=== PATIENT | female | born 1960 | race Caucasian/White ===

== ENCOUNTER 2017-07-20 08:47 | Emergency (ER) | payer MEDICARE, MEDICAID ==
[~2017-07-20] VITALS: Ht 165.1 cm; Wt 100.0 kg
[~2017-07-20 08:47] MED LIST: ADVIL MIGRAI200 M1 PO; ALLERGY RELF10 M1 PO; AMLODIPINE BESY10 MG PO; AMOXICILLIN/CL875 MG PO; AMOXICILLIN500 MG PO; AMOXIL500 M1 OR; ANTIVERT25 MG OR; ANUCORT-HC25 MG RE; ASPIRIN325 MG PO; AUGMENTIN875TAB PO; CIPROFLOXACN500 MG PO; CITALOPRAM40 MG OR; CLARITHROMYC500 M1 PO; CLARITIN RDT5 MG PO; CLARITIN10 M1 PO; DEPO-MEDROL80 MG/ML IM; ENALAPRIL10 MG PO; EQL IBUPROFEN200 MG PO; ESTRADIOL1 MG PO; FAMOTIDINE20 M1 PO; FLEXERIL PO; FLEXERIL5 M1 PO; FLEXERIL5 MG PO; FLONASE NASAL50 MCG; FLUZONE SPLT1 M1 IM; GENTAMICIN IV; GEODON60 MG OR; GEODON80 MG OR; GEODON80 MG PO; GLUCOPHAGE500 MG PO; GLYBURIDE MICRON6 MG PO; GLYNASE6 MG OR; GLYNASE6 MG PO; KEFLEX500 MG PO; LORTAB 5 OR; LORTAB 7.5 PO; LOVASTATIN20 MG OR; MEDDOSEPAK PO; MELOXICAM15 MG PO; MELOXICAM7.5 MG PO; METFORMIN500 M1 PO; METFORMIN500 MG PO; METRONIDAZOL500 MG PO; MONTELUKAST SOD10 MG PO; MUCINEX600 MG PO; NAPROSYN500 MG PO; NAPROXEN500 MG PO; NO HOME MEDS; NORVASC10 M1 PO; NORVASC5 MG OR; OMEPRAZOLE20 M2 PO; OMEPRAZOLE20 MG PO; PAROXETINE10 MG PO; PEPCID20 MG PO; PERCOCET 5/325M1 TAB OR; PHENERGAN12.5 MG/TA PO; PRAVACHOL20 MG PO; PRAVASTATIN SOD20 MG PO; PRAVASTATIN10 MG PO; PREDNISONE20 MG PO; PREP H HC1 % EX; PYRIDIUM200 MG PO; REBETOL200 MG OR; ROCEPHIN1 G1 IM; SINGULAIR10 MG PO; SODIUM CHLORIDE IV; STOOL SOFTEN240 MG PO; TENIVAC1 ML IM; TRAMADOL HCL50 MG PO; TRAZODONE100 MG PO; TRAZODONE150 MG PO; ULTRAM50 M1 PO; VASOTEC10 MG PO; VENLAFAXINE37.5 M2 PO; ZANTAC150 M1 PO; ZIPRASIDONE HCL40 MG PO; ZOFRAN4 MG/TAB PO; [UNRECOGNIZED DRUG - REMARK]; [UNRECOGNIZED DRUG - REMARK]
[2017-07-20] MEDS ORDERED: MOTRIN400 MG PO (09:14)
[2017-07-20] MEDS ORDERED: FLEXERIL5 M1 PO (09:14)
[2017-07-20] MEDS ORDERED: AMLODIPINE5 MG PO (09:17)
[2017-07-20] MEDS ORDERED: GABAPENTIN100 MG PO (09:19)
[2017-07-20] MEDS ORDERED: FLONASE AL50 MCG/ACT NAB (09:20)
[2017-07-20] MEDS ORDERED: LANTUS100 UNIT/M SC (09:21)
[2017-07-20 09:22] VITALS: BP 136/74
== END 2017-07-20 09:35 | disposition home or self-care (01) ==
LOC: ED 08:47
DX: M25.511 Pain in right shoulder (principal)

== ENCOUNTER 2017-09-29 17:32 | Emergency (ER) | payer MEDICARE, MEDICAID ==
[~2017-09-29] VITALS: Ht 165.1 cm; Wt 100.4 kg
[~2017-09-29 17:32] MED LIST changes: +AMLODIPINE5 MG PO; +FLONASE AL50 MCG/ACT NAB; +GABAPENTIN100 MG PO; +LANTUS100 UNIT/M SC; +MOTRIN400 MG PO
[2017-09-29 19:09] LABS: HEMATOCRIT 40.4 % (37.0-47.0); HEMOGLOBIN 13.3 g/dl (12.0-16.0); IMMATURE GRANULOCYTES 0.4 % (0.0-1.0); MEAN CORPUSCULAR HGB 29.6 pG CALC (26.0-32.0); MEAN CORPUSCULAR HGB CONC 32.9 g/L CALC (32.0-36.0); NEUT# 6.94 thou/uL (2.00-7.15); RED BLOOD COUNT 4.49 mill/uL (4.20-5.60); RED CELL DISTRI WIDTH 13.5 % (11.5-15.5)
[2017-09-29 19:21] LABS: ALBUMIN 4.2 g/dL (3.2-5.0); BILIRUBIN, TOTAL 0.7 mg/dL (0.0-1.4); CREATININE 1.2 mg/dL (0.5-1.0); TOTAL PROTEIN 7.6 g/dL (6.3-8.2)
[2017-09-29] MEDS ORDERED: FLEXERIL PO (19:44)
[2017-09-29] MEDS ORDERED: NAPROSYN500 MG PO (19:44)
[2017-09-29 19:46] VITALS: BP 114/70
== END 2017-09-29 19:45 | disposition home or self-care (01) ==
LOC: ED 17:32
PROVIDERS: Emergency Medicine
DX: M79.1 Myalgia (principal); I10 Essential (primary) hypertension

== ENCOUNTER 2017-10-15 13:29 | Emergency (ER) | payer MEDICARE, MEDICAID ==
[~2017-10-15] VITALS: Ht 165.1 cm; Wt 101.4 kg
[2017-10-15 13:34] VITALS: BP 125/72
[2017-10-15] MEDS ORDERED: LORTAB 5/3255 MG PO (13:52)
[2017-10-15] MEDS ORDERED: PENICILLN VK500 MG PO (13:52)
== END 2017-10-15 14:03 | disposition home or self-care (01) ==
LOC: ED 13:29
DX: K08.89 Other specified disorders of teeth and supporting structures (principal); F17.210 Nicotine dependence, cigarettes, uncomplicated

== ENCOUNTER 2018-07-04 21:58 | Emergency (ER) | payer MEDICARE, MEDICAID ==
[~2018-07-04] VITALS: Ht 165.1 cm; Wt 99.6 kg
[~2018-07-04 21:58] MED LIST changes: +LORTAB 5/3255 MG PO; +PENICILLN VK500 MG PO
[2018-07-04] MEDS ORDERED: MELOXICAM15 MG PO (22:27)
[2018-07-04] MEDS ORDERED: RANITIDINE150 M1 PO (22:27)
[2018-07-04 22:32] LABS: HEMATOCRIT 34.9 % (37.0-47.0); HEMOGLOBIN 11.6 g/dl (12.0-16.0); IMMATURE GRANULOCYTES 0.2 % (0.0-5.0); MEAN CELL VOLUME 88.1 fL CALC (80.0-100.0); MEAN CORPUSCULAR HGB 29.3 pG CALC (26.0-32.0); MEAN CORPUSCULAR HGB CONC 33.2 g/L CALC (32.0-36.0); NEUT# 3.14 thou/uL (2.00-7.15); RED BLOOD COUNT 3.96 mill/uL (4.20-5.60); RED CELL DISTRI WIDTH 13.7 % (11.5-15.5)
[2018-07-04 22:48] LABS: ALBUMIN 3.8 g/dL (3.2-5.0); ALKALINE PHOSPHATASE 96 u/l (38-126); AMYLASE 34 u/l (30-110); ANION GAP 15 (6-22 (CALC)); BILIRUBIN, TOTAL 0.6 mg/dL (0.0-1.4); BUN 21 mg/dL (7-17); BUN/CREATININE RATIO 22 (12-20 (CALC)); CARBON DIOXIDE 25 mmol/l (22-30); CHLORIDE 101 mmol/l (95-108); GFR 57 ML/MIN (>=60 (CALC)); GFR FOR AFR.AMER. > 60 ML/MIN (>=60 (CALC)); LIPASE 223 u/l (23-300); MAGNESIUM 1.9 mg/dL (1.6-2.3); POTASSIUM 4.2 mmol/l (3.5-5.1); SGOT/AST 41 u/l (14-36); SGPT/ALT 44 u/l (9-52); SODIUM 136 mmol/l (137-146); TOTAL PROTEIN 6.7 g/dL (6.3-8.2)
[2018-07-05 00:11] LABS: URINE BILIRUBIN - DIPSTICK NEGATIVE (NEGATIVE); URINE BLOOD DIPSTICK MODERATE (NEGATIVE); URINE COLOR YELLOW; URINE GLUCOSE - DIPSTICK >=1000 mg/dL (NEGATIVE); URINE KETONE NEGATIVE (NEGATIVE); URINE LEUK ESTERASE NEGATIVE (NEGATIVE); URINE NITRITE - DIPSTICK NEGATIVE (Negative); URINE PROTEIN - DIPSTICK 30 mg/dL (NEG-TRACE); URINE UROBILINOGEN - DIPSTICK 0.2 E.U./dL (0.2)
[2018-07-05 00:13] LABS: URINE CLARITY SL CLOUDY
[2018-07-05 00:20] LABS: URINE BACTERIA FEW hpf; URINE MUCUS MODERATE hpf (NONE-FEW); URINE SQUAMOUS EPITHELIAL CELL MODERATE EPI/hpf (0-FEW)
[2018-07-05] MEDS ORDERED: NOVOLIN R100 UNIT/M SC (00:21)
[2018-07-05 00:28] VITALS: BP 140/75
== END 2018-07-05 00:28 | disposition home or self-care (01) ==
LOC: ED 21:58
PROVIDERS: Family Medicine
DX: E11.65 Type 2 diabetes mellitus with hyperglycemia (principal); I10 Essential (primary) hypertension; F17.210 Nicotine dependence, cigarettes, uncomplicated; Z91.11 Patient's noncompliance with dietary regimen; Z79.4 Long term (current) use of insulin

== ENCOUNTER 2019-02-16 11:52 | Emergency (ER) | payer MEDICARE, MEDICAID ==
[~2019-02-16] VITALS: Ht 165.1 cm; Wt 100.0 kg
[~2019-02-16 11:52] MED LIST changes: +NOVOLIN R100 UNIT/M SC; +RANITIDINE150 M1 PO
[2019-02-16 12:40] LABS: HEMOGLOBIN 11.5 g/dl (12.0-16.0); IMMATURE GRANULOCYTES 0.5 % (0.0-5.0); MEAN CELL VOLUME 88.9 fL CALC (80.0-100.0); MEAN CORPUSCULAR HGB 28.4 pG CALC (26.0-32.0); MEAN CORPUSCULAR HGB CONC 31.9 g/L CALC (32.0-36.0); NEUT# 4.02 thou/uL (2.00-7.15); RED BLOOD COUNT 4.05 mill/uL (4.20-5.60); RED CELL DISTRI WIDTH 13.8 % (11.5-15.5)
[2019-02-16 12:42] LABS: URINE BILIRUBIN - DIPSTICK NEGATIVE (NEGATIVE); URINE BLOOD DIPSTICK TRACE-INTACT (NEGATIVE); URINE COLOR YELLOW; URINE GLUCOSE - DIPSTICK NEGATIVE (NEGATIVE); URINE KETONE NEGATIVE (NEGATIVE); URINE LEUK ESTERASE NEGATIVE (NEGATIVE); URINE NITRITE - DIPSTICK NEGATIVE (Negative); URINE PH 5.5 (4.5-8.0); URINE PROTEIN - DIPSTICK >=300 mg/dL (NEG-TRACE); URINE SPECIFIC GRAVITY >=1.030; URINE UROBILINOGEN - DIPSTICK 0.2 E.U./dL (0.2)
[2019-02-16 12:48] LABS: BARBITURATES NEGATIVE (NEGATIVE); COCAINE NEGATIVE (NEGATIVE); METHADONE NEGATIVE (NEGATIVE); TETRAHYDROCANNABIONOL NEGATIVE (NEGATIVE); TRICYLIC ANTIDEPRESSANTS NEGATIVE (NEGATIVE); URINE EPITHELIAL CELLS FEW EPI/hpf (0-FEW); URINE MUCUS MODERATE hpf (NONE-FEW); URINE RBC 0-2 RBC/hpf (0-5)
[2019-02-16 12:49] LABS: OXCYCODONE NEGATIVE (NEGATIVE)
[2019-02-16 12:53] LABS: ALBUMIN 4.1 g/dL (3.2-5.0); ALKALINE PHOSPHATASE 86 u/l (38-126); ANION GAP 13 (6-22 (CALC)); BILIRUBIN, TOTAL 0.5 mg/dL (0.0-1.4); BUN 19 mg/dL (7-17); BUN/CREATININE RATIO 24 (12-20 (CALC)); CARBON DIOXIDE 24 mmol/l (22-30); CHLORIDE 108 mmol/l (95-108); CREATININE 0.8 mg/dL (0.5-1.0); GFR > 60 ML/MIN (>=60 (CALC)); GFR FOR AFR.AMER. > 60 ML/MIN (>=60 (CALC)); LIPASE 101 u/l (23-300); POTASSIUM 4.5 mmol/l (3.5-5.1); SGOT/AST 37 u/l (14-36); SODIUM 141 mmol/l (137-146); TOTAL PROTEIN 7.2 g/dL (6.3-8.2)
[2019-02-16 13:11] VITALS: BP 140/78
== END 2019-02-16 13:41 | disposition home or self-care (01) ==
LOC: ED 11:52
DX: R19.7 Diarrhea, unspecified (principal); F15.90 Other stimulant use, unspecified, uncomplicated; E11.9 Type 2 diabetes mellitus without complications; I10 Essential (primary) hypertension; F17.210 Nicotine dependence, cigarettes, uncomplicated

== ENCOUNTER 2020-01-01 | Emergency (ER) | payer MEDICARE, MEDICAID ==
[~2020-01-01] MED LIST changes: -AMLODIPINE5 MG PO; +NORVASC5 M1 PO
[2020-01-01 22:33] LABS: HEMATOCRIT 36.3 % (37.0-47.0); HEMOGLOBIN 11.1 g/dl (12.0-16.0); MEAN CELL VOLUME 90.1 fL CALC (80.0-100.0); MEAN CORPUSCULAR HGB 27.5 pG CALC (26.0-32.0); MEAN CORPUSCULAR HGB CONC 30.6 g/L CALC (32.0-36.0); NEUT# 3.67 thou/uL (2.00-7.15); RED BLOOD COUNT 4.03 mill/uL (4.20-5.60); RED CELL DISTRI WIDTH 14.3 % (11.5-15.5)
[2020-01-01 22:45] LABS: ALBUMIN 3.5 g/dL (3.2-5.0); ALKALINE PHOSPHATASE 89 u/l (38-126); ANION GAP 7 (6-22 (CALC)); BILIRUBIN, TOTAL 0.4 mg/dL (0.0-1.4); BUN 19 mg/dL (7-17); BUN/CREATININE RATIO 21 (12-20 (CALC)); CARBON DIOXIDE 27 mmol/l (22-30); CHLORIDE 109 mmol/l (95-108); CREATININE 0.9 mg/dL (0.5-1.0); GFR > 60 ML/MIN (>=60 (CALC)); GFR FOR AFR.AMER. > 60 ML/MIN (>=60 (CALC)); POTASSIUM 3.9 mmol/l (3.5-5.1); SGOT/AST 42 u/l (14-36); SODIUM 140 mmol/l (137-146); TOTAL PROTEIN 6.9 g/dL (6.3-8.2)
[2020-01-01 22:58] LABS: MYOGLOBIN 52 ng/mL (0 - 62)
[2020-01-01] MEDS ORDERED: AUGMENTIN500TAB PO (23:49)
[2020-01-02 00:05] LABS: BARBITURATES NEGATIVE (NEGATIVE); COCAINE NEGATIVE (NEGATIVE); METHADONE NEGATIVE (NEGATIVE); OXCYCODONE NEGATIVE (NEGATIVE); TETRAHYDROCANNABIONOL NEGATIVE (NEGATIVE); TRICYLIC ANTIDEPRESSANTS NEGATIVE (NEGATIVE)
== END 2020-01-01 23:58 ==
PROVIDERS: Emergency Medicine
DX: S50.371A Other superficial bite of right elbow, initial encounter (principal); S00.93XA Contusion of unspecified part of head, initial encounter; I10 Essential (primary) hypertension; E11.9 Type 2 diabetes mellitus without complications; F17.200 Nicotine dependence, unspecified, uncomplicated; W54.0XXA Bitten by dog, initial encounter; Y00.XXXA Assault by blunt object, initial encounter; Y92.009 Unspecified place in unspecified non-institutional (private) residence as the place of occurrence of the external cause; Z79.4 Long term (current) use of insulin

== ENCOUNTER 2020-04-07 12:38 | Emergency (ER) | payer MEDICARE, MEDICAID ==
[~2020-04-07] VITALS: Ht 165.1 cm; Wt 95.0 kg
[~2020-04-07 12:38] MED LIST changes: +AUGMENTIN500TAB PO
[2020-04-07 15:23] LABS: HEMATOCRIT 30.9 % (37.0-47.0); HEMOGLOBIN 9.8 g/dl (12.0-16.0); IMMATURE GRANULOCYTES 0.2 % (0.0-5.0); MEAN CELL VOLUME 87.3 fL CALC (80.0-100.0); MEAN CORPUSCULAR HGB 27.7 pG CALC (26.0-32.0); MEAN CORPUSCULAR HGB CONC 31.7 g/dL CAL (32.0-36.0); NEUT# 3.26 thou/uL (2.00-7.15); RED BLOOD COUNT 3.54 mill/uL (4.20-5.60); RED CELL DISTRI WIDTH 15.7 % (11.5-15.5)
[2020-04-07 15:46] LABS: ALBUMIN 3.5 g/dL (3.2-5.0); ALKALINE PHOSPHATASE 104 u/l (38-126); ANION GAP 10 (6-22 (CALC)); BILIRUBIN, TOTAL 0.4 mg/dL (0.0-1.4); BUN 25 mg/dL (7-17); BUN/CREATININE RATIO 21 (12-20 (CALC)); CARBON DIOXIDE 23 mmol/l (22-30); CHLORIDE 106 mmol/l (95-108); CREATININE 1.2 mg/dL (0.5-1.0); GFR 46 ML/MIN (>=60 (CALC)); GFR FOR AFR.AMER. 55 ML/MIN (>=60 (CALC)); POTASSIUM 3.9 mmol/l (3.5-5.1); SGOT/AST 45 u/l (14-36); SODIUM 135 mmol/l (137-146); TOTAL PROTEIN 6.8 g/dL (6.3-8.2)
[2020-04-07 15:58] LABS: MYOGLOBIN 94 ng/mL (0 - 62)
[2020-04-07] MEDS ORDERED: AMOXICILLIN875 MG PO (16:15)
[2020-04-07 16:55] VITALS: BP 139/74
[2020-04-07 16:57] LABS: URINE BILIRUBIN - DIPSTICK NEGATIVE (NEGATIVE); URINE BLOOD DIPSTICK TRACE-INTACT (NEGATIVE); URINE COLOR YELLOW; URINE GLUCOSE - DIPSTICK NEGATIVE (NEGATIVE); URINE KETONE NEGATIVE (NEGATIVE); URINE LEUK ESTERASE NEGATIVE (NEGATIVE); URINE NITRITE - DIPSTICK NEGATIVE (Negative); URINE PROTEIN - DIPSTICK >=300 mg/dL (NEG-TRACE); URINE SPECIFIC GRAVITY 1.025; URINE UROBILINOGEN - DIPSTICK 0.2 E.U./dL (0.2)
[2020-04-07 17:21] LABS: URINE SQUAMOUS EPITHELIAL CELL FEW EPI/hpf (0-FEW)
== END 2020-04-07 16:55 | disposition home or self-care (01) ==
LOC: ED 12:38
PROVIDERS: Emergency Medicine
DX: L03.116 Cellulitis of left lower limb (principal); L03.115 Cellulitis of right lower limb; S90.862A Insect bite (nonvenomous), left foot, initial encounter; S90.811A Abrasion, right foot, initial encounter; E11.9 Type 2 diabetes mellitus without complications; I10 Essential (primary) hypertension; F17.200 Nicotine dependence, unspecified, uncomplicated; W57.XXXA Bitten or stung by nonvenomous insect and other nonvenomous arthropods, initial encounter; X58.XXXA Exposure to other specified factors, initial encounter; Z79.4 Long term (current) use of insulin

== ENCOUNTER 2020-04-20 20:02 | Emergency (ER) | payer MEDICARE, MEDICAID ==
[~2020-04-20] VITALS: Ht 165.1 cm; Wt 90.9 kg
[~2020-04-20 20:02] MED LIST changes: +AMOXICILLIN875 MG PO
[2020-04-20 21:08] LABS: HEMATOCRIT 28.9 % (37.0-47.0); HEMOGLOBIN 8.8 g/dl (12.0-16.0); IMMATURE GRANULOCYTES 0.2 % (0.0-5.0); MEAN CORPUSCULAR HGB 27.4 pG CALC (26.0-32.0); MEAN CORPUSCULAR HGB CONC 30.4 g/dL CAL (32.0-36.0); NEUT# 3.14 thou/uL (2.00-7.15); RED BLOOD COUNT 3.21 mill/uL (4.20-5.60); RED CELL DISTRI WIDTH 16.1 % (11.5-15.5)
[2020-04-20 21:08] LABS: URINE BILIRUBIN - DIPSTICK NEGATIVE (NEGATIVE); URINE BLOOD DIPSTICK NEGATIVE (NEGATIVE); URINE COLOR YELLOW; URINE GLUCOSE - DIPSTICK NEGATIVE (NEGATIVE); URINE KETONE NEGATIVE (NEGATIVE); URINE LEUK ESTERASE NEGATIVE (NEGATIVE); URINE NITRITE - DIPSTICK NEGATIVE (Negative); URINE PH 5.5 (4.5-8.0); URINE PROTEIN - DIPSTICK 100 mg/dL (NEG-TRACE); URINE SPECIFIC GRAVITY >=1.030; URINE UROBILINOGEN - DIPSTICK 0.2 E.U./dL (0.2)
[2020-04-20 21:13] LABS: URINE RBC 0-2 RBC/hpf (0-5); URINE SQUAMOUS EPITHELIAL CELL FEW EPI/hpf (0-FEW); URINE WBC 0-2 WBC/hpf (0-5)
[2020-04-20 21:25] LABS: ALBUMIN 3.7 g/dL (3.2-5.0); BILIRUBIN, TOTAL 0.3 mg/dL (0.0-1.4); CREATININE 1.2 mg/dL (0.5-1.0); POTASSIUM 3.9 mmol/l (3.5-5.1); TOTAL PROTEIN 6.8 g/dL (6.3-8.2)
[2020-04-20 21:29] LABS: MAGNESIUM 2.4 mg/dL (1.6-2.3)
[2020-04-20] MEDS ORDERED: TORADOL PO (21:43)
[2020-04-20 22:08] VITALS: BP 161/67
== END 2020-04-20 22:45 | disposition home or self-care (01) ==
LOC: ED 20:02
PROVIDERS: Family Medicine
DX: R25.2 Cramp and spasm (principal); M25.512 Pain in left shoulder; F15.10 Other stimulant abuse, uncomplicated; E11.9 Type 2 diabetes mellitus without complications; I10 Essential (primary) hypertension; F17.200 Nicotine dependence, unspecified, uncomplicated; Z79.4 Long term (current) use of insulin

== ENCOUNTER 2021-04-10 20:06 | Emergency (ER) | payer MEDICARE, MEDICAID ==
[~2021-04-10] VITALS: Ht 165.1 cm; Wt 81.0 kg
[~2021-04-10 20:06] MED LIST changes: +TORADOL PO
[2021-04-10 20:53] LABS: HEMATOCRIT 33.9 % (37.0-47.0); HEMOGLOBIN 10.4 g/dl (12.0-16.0); IMMATURE GRANULOCYTES 0.1 % (0.0-5.0); MEAN CELL VOLUME 85.4 fL CALC (80.0-100.0); MEAN CORPUSCULAR HGB 26.2 pG CALC (26.0-32.0); MEAN CORPUSCULAR HGB CONC 30.7 g/dL CAL (32.0-36.0); RED BLOOD COUNT 3.97 mill/uL (4.20-5.60); RED CELL DISTRI WIDTH 15.3 % (11.5-15.5)
[2021-04-10 21:06] LABS: ALKALINE PHOSPHATASE 123 u/l (38-126); ANION GAP 13 (6-22 (CALC)); BUN 17 mg/dL (8-23); BUN/CREATININE RATIO 14 (12-20 (CALC)); CARBON DIOXIDE 22 mmol/l (22-30); CHLORIDE 107 mmol/l (95-108); CREATININE 1.3 mg/dL (0.5-1.0); GFR 42 ML/MIN (>=60 (CALC)); GFR FOR AFR.AMER. 50 ML/MIN (>=60 (CALC)); POTASSIUM 4.2 mmol/l (3.5-5.1); SGOT/AST 37 u/l (9-36); SODIUM 137 mmol/l (137-146)
[2021-04-10 21:08] LABS: ALBUMIN 3.4 g/dL (3.2-5.0); BILIRUBIN, TOTAL 0.5 mg/dL (0.0-1.4); TOTAL PROTEIN 6.9 g/dL (6.3-8.2)
[2021-04-10 21:27] LABS: PROTHROMBIN TIME 10.2 SECONDS (9.0-12.5)
[2021-04-10 21:33] LABS: D-DIMER 4.96 mg/L (0.19-0.60)
[2021-04-11 01:23] VITALS: BP 171/78
== END 2021-04-11 01:05 | disposition short-term general hospital (02) ==
LOC: ED 20:06
PROVIDERS: Family Medicine
DX: J18.9 Pneumonia, unspecified organism (principal); J91.8 Pleural effusion in other conditions classified elsewhere; I10 Essential (primary) hypertension; E11.9 Type 2 diabetes mellitus without complications; B19.20 Unspecified viral hepatitis C without hepatic coma; K74.60 Unspecified cirrhosis of liver; Z87.891 Personal history of nicotine dependence; Z79.4 Long term (current) use of insulin

== ENCOUNTER 2021-04-21 08:54 | Emergency (ER) | payer MEDICARE, MEDICAID ==
[~2021-04-21] VITALS: Ht 165.1 cm; Wt 90.8 kg
[2021-04-21] MEDS ORDERED: ALBUTEROL SUL0.083 % IN (09:42)
[2021-04-21] MEDS ORDERED: LISINOP/HCTZ1 TA1 PO (09:43)
[2021-04-21 09:54] LABS: MEAN CORPUSCULAR HGB 26.5 pG CALC (26.0-32.0); MEAN CORPUSCULAR HGB CONC 29.7 g/dL CAL (32.0-36.0); NEUT# 1.8 thou/uL (2.00-7.15); RED BLOOD COUNT 2.91 mill/uL (4.20-5.60); RED CELL DISTRI WIDTH 15.5 % (11.5-15.5)
[2021-04-21 09:59] LABS: ALKALINE PHOSPHATASE 120 u/l (38-126); ANION GAP 9 (6-22 (CALC)); BUN 20 mg/dL (8-23); BUN/CREATININE RATIO 19 (12-20 (CALC)); CARBON DIOXIDE 24 mmol/l (22-30); CHLORIDE 108 mmol/l (95-108); GFR 56 ML/MIN (>=60 (CALC)); GFR FOR AFR.AMER. > 60 ML/MIN (>=60 (CALC)); POTASSIUM 3.9 mmol/l (3.5-5.1); SGOT/AST 47 u/l (9-36); SODIUM 136 mmol/l (137-146); TOTAL PROTEIN 5.9 g/dL (6.3-8.2)
[2021-04-21 10:02] LABS: HEMATOCRIT 25.9 % (37.0-47.0); HEMOGLOBIN 7.7 g/dl (12.0-16.0)
[2021-04-21 10:04] LABS: ALBUMIN 2.7 g/dL (3.2-5.0); BILIRUBIN, TOTAL 0.2 mg/dL (0.0-1.4)
[2021-04-21 10:11] LABS: MYOGLOBIN 39 ng/mL (0 - 62)
[2021-04-21 13:06] VITALS: BP 164/67
== END 2021-04-21 13:06 | disposition short-term general hospital (02) ==
LOC: ED 08:54
PROVIDERS: Emergency Medicine
DX: J18.9 Pneumonia, unspecified organism (principal); J91.8 Pleural effusion in other conditions classified elsewhere; D64.9 Anemia, unspecified; I10 Essential (primary) hypertension; E11.9 Type 2 diabetes mellitus without complications; K74.60 Unspecified cirrhosis of liver; F17.200 Nicotine dependence, unspecified, uncomplicated; T50.916A Underdosing of multiple unspecified drugs, medicaments and biological substances, initial encounter; Z91.128 Patient's intentional underdosing of medication regimen for other reason; Z79.4 Long term (current) use of insulin; Z20.822 Contact with and (suspected) exposure to COVID-19
CPT/HCPCS: Q9967

== ENCOUNTER 2021-05-22 08:05 | Observation (INO) | payer MEDICARE, MEDICAID ==
[~2021-05-22 08:05] MED LIST changes: +ALBUTEROL SUL0.083 % IN; +LISINOP/HCTZ1 TA1 PO
[2021-05-22] MEDS ORDERED: FUROSEMIDE20 MG PO (08:36)
[2021-05-22] MEDS ORDERED: SPIRONOLACT25 MG PO (08:36)
[2021-05-22] MEDS ORDERED: LISINOPRIL10 MG PO (08:36)
[2021-05-22 08:57] LABS: HEMATOCRIT 28.6 % (37.0-47.0); HEMOGLOBIN 8.8 g/dl (12.0-16.0); MEAN CELL VOLUME 88.3 fL CALC (80.0-100.0); MEAN CORPUSCULAR HGB 27.2 pG CALC (26.0-32.0); MEAN CORPUSCULAR HGB CONC 30.8 g/dL CAL (32.0-36.0); NEUT# 2.55 thou/uL (2.00-7.15); RED BLOOD COUNT 3.24 mill/uL (4.20-5.60)
[2021-05-22 09:27] LABS: ALBUMIN 2.6 g/dL (3.2-5.0); ALKALINE PHOSPHATASE 111 u/l (38-126); ANION GAP 7 (6-22 (CALC)); BILIRUBIN, TOTAL 0.2 mg/dL (0.0-1.4); BUN 31 mg/dL (8-23); BUN/CREATININE RATIO 18 (12-20 (CALC)); CARBON DIOXIDE 22 mmol/l (22-30); CHLORIDE 111 mmol/l (95-108); CREATININE 1.7 mg/dL (0.5-1.0); D-DIMER 3.98 mg/L (0.19-0.60); GFR 31 ML/MIN (>=60 (CALC)); GFR FOR AFR.AMER. 37 ML/MIN (>=60 (CALC)); POTASSIUM 4.5 mmol/l (3.5-5.1); SGOT/AST 39 u/l (9-36); SODIUM 135 mmol/l (137-146); TOTAL PROTEIN 5.8 g/dL (6.3-8.2)
[2021-05-22 09:28] LABS: PROTHROMBIN TIME 10.2 SECONDS (9.0-12.5)
[2021-05-22] MEDS ORDERED: HYDROCHLOROTH12.5 MG PO (11:30)
[2021-05-22 12:06] LABS: URINE BILIRUBIN - DIPSTICK NEGATIVE (NEGATIVE); URINE BLOOD DIPSTICK SMALL (NEGATIVE); URINE COLOR YELLOW; URINE GLUCOSE - DIPSTICK NEGATIVE (NEGATIVE); URINE KETONE NEGATIVE (NEGATIVE); URINE LEUK ESTERASE NEGATIVE (NEGATIVE); URINE PROTEIN - DIPSTICK 100 mg/dL (NEG-TRACE); URINE SPECIFIC GRAVITY 1.025; URINE UROBILINOGEN - DIPSTICK 0.2 E.U./dL (0.2)
[2021-05-22 12:08] LABS: URINE NITRITE - DIPSTICK NEGATIVE (Negative)
[2021-05-22 12:09] LABS: URINE EPITHELIAL CELLS FEW EPI/hpf (0-FEW)
[2021-05-22 12:57] VITALS: BP 160/68
[2021-05-22 15:00] VITALS: BP 141/69
[2021-05-22 18:53] VITALS: BP 147/73
[2021-05-23 00:09] VITALS: BP 158/76
[2021-05-23 04:12] LABS: MEAN CELL VOLUME 88.2 fL CALC (80.0-100.0); MEAN CORPUSCULAR HGB 26.7 pG CALC (26.0-32.0); MEAN CORPUSCULAR HGB CONC 30.3 g/dL CAL (32.0-36.0); RED BLOOD COUNT 3.74 mill/uL (4.20-5.60); RED CELL DISTRI WIDTH 15.9 % (11.5-15.5)
[2021-05-23 04:18] VITALS: BP 151/74
[2021-05-23 04:22] LABS: CREATININE 1.4 mg/dL (0.5-1.0); MAGNESIUM 1.9 mg/dL (1.6-2.3); POTASSIUM 4.1 mmol/l (3.5-5.1)
[2021-05-23 07:55] VITALS: BP 157/74
[2021-05-23 11:47] VITALS: BP 175/77
[2021-05-23] MEDS ORDERED: OMNICEF300 M1 PO (11:52)
[2021-05-23] MEDS ORDERED: AZITHROMYCIN500 MG PO (11:52)
== END 2021-05-23 13:02 | disposition home or self-care (01) ==
LOC: ED 08:05 → ED-I 09:40 → ED 10:23 → MS2 10:24
PROVIDERS: Emergency Medicine; Nurse Practitioner; ADMIT Hospitalist; ATTEND Hospitalist
PROC: 0W993ZZ Drainage of Right Pleural Cavity, Percutaneous Approach (ICD-10-PCS; principal; 2021-05-22)
DX: J18.9 Pneumonia, unspecified organism (principal); J91.8 Pleural effusion in other conditions classified elsewhere; N17.9 Acute kidney failure, unspecified; K74.60 Unspecified cirrhosis of liver; B19.20 Unspecified viral hepatitis C without hepatic coma; I12.9 Hypertensive chronic kidney disease with stage 1 through stage 4 chronic kidney disease, or unspecified chronic kidney disease; E11.22 Type 2 diabetes mellitus with diabetic chronic kidney disease; N18.9 Chronic kidney disease, unspecified; E78.5 Hyperlipidemia, unspecified; D69.6 Thrombocytopenia, unspecified; E66.9 Obesity, unspecified; F10.20 Alcohol dependence, uncomplicated; F17.200 Nicotine dependence, unspecified, uncomplicated; Z79.4 Long term (current) use of insulin; Z68.29 Body mass index [BMI] 29.0-29.9, adult; Z20.822 Contact with and (suspected) exposure to COVID-19
CPT/HCPCS: G0378

== ENCOUNTER 2021-07-14 17:37 | Inpatient (IN) | payer MEDICARE, MEDICAID ==
[~2021-07-14] VITALS: Ht 165.1 cm; Wt 78.0 kg
[~2021-07-14 17:37] MED LIST changes: +AZITHROMYCIN500 MG PO; +FUROSEMIDE20 MG PO; +HYDROCHLOROTH12.5 MG PO; +LISINOPRIL10 MG PO; +OMNICEF300 M1 PO; +SPIRONOLACT25 MG PO
[2021-07-14] MEDS ORDERED: ALDACTONE50 MG PO (18:18)
[2021-07-14 18:46] LABS: HEMATOCRIT 28.7 % (37.0-47.0); HEMOGLOBIN 9.6 g/dl (12.0-16.0); MEAN CELL VOLUME 86.4 fL CALC (80.0-100.0); MEAN CORPUSCULAR HGB 28.9 pG CALC (26.0-32.0); MEAN CORPUSCULAR HGB CONC 33.4 g/dL CAL (32.0-36.0); NEUT# 3.32 thou/uL (2.00-7.15); RED BLOOD COUNT 3.32 mill/uL (4.20-5.60); RED CELL DISTRI WIDTH 15.4 % (11.5-15.5)
[2021-07-14 19:03] LABS: ALKALINE PHOSPHATASE 82 u/l (38-126); BILIRUBIN, TOTAL 0.4 mg/dL (0.0-1.4); CARBON DIOXIDE 17 mmol/l (22-30); CHLORIDE 104 mmol/l (95-108); GFR 16 ML/MIN (>=60 (CALC)); GFR FOR AFR.AMER. 19 ML/MIN (>=60 (CALC)); LIPASE 243 u/l (23-300); SGOT/AST 29 u/l (9-36); SODIUM 128 mmol/l (137-146); TOTAL PROTEIN 7.5 g/dL (6.3-8.2)
[2021-07-14 19:06] LABS: BUN/CREATININE RATIO 31 (12-20 (CALC))
[2021-07-14 19:07] LABS: ANION GAP 13 (6-22 (CALC)); BUN 93 mg/dL (8-23); MAGNESIUM 2.5 mg/dL (1.6-2.3); POTASSIUM 6.1 mmol/l (3.5-5.1)
[2021-07-14 20:09] LABS: URINE BILIRUBIN - DIPSTICK NEGATIVE (NEGATIVE); URINE BLOOD DIPSTICK TRACE-INTACT (NEGATIVE); URINE COLOR YELLOW; URINE GLUCOSE - DIPSTICK NEGATIVE (NEGATIVE); URINE KETONE NEGATIVE (NEGATIVE); URINE LEUK ESTERASE NEGATIVE (NEGATIVE); URINE NITRITE - DIPSTICK NEGATIVE (Negative); URINE PROTEIN - DIPSTICK 100 mg/dL (NEG-TRACE); URINE SPECIFIC GRAVITY 1.015; URINE UROBILINOGEN - DIPSTICK 0.2 E.U./dL (0.2)
[2021-07-14 20:18] LABS: URINE BACTERIA MANY hpf; URINE RBC 0-2 RBC/hpf (0-5); URINE SQUAMOUS EPITHELIAL CELL FEW EPI/hpf (0-FEW)
[2021-07-15 07:19] VITALS: BP 144/71
[2021-07-15 08:33] LABS: CREATININE 2.5 mg/dL (0.5-1.0)
[2021-07-15 08:35] VITALS: BP 117/58
[2021-07-15 08:35] LABS: POTASSIUM 6.1 mmol/l (3.5-5.1)
[2021-07-15 17:09] LABS: CREATININE 2.2 mg/dL (0.5-1.0)
[2021-07-15 17:14] LABS: POTASSIUM 6.5 mmol/l (3.5-5.1)
[2021-07-15 20:11] VITALS: BP 145/65
[2021-07-15 22:31] LABS: CREATININE 2.1 mg/dL (0.5-1.0)
[2021-07-15 22:40] LABS: POTASSIUM 5.3 mmol/l (3.5-5.1)
[2021-07-15 23:30] VITALS: BP 104/59
[2021-07-16 04:00] VITALS: BP 117/69
[2021-07-16 06:00] LABS: ALBUMIN 3.3 g/dL (3.2-5.0); BILIRUBIN, TOTAL 0.3 mg/dL (0.0-1.4); HEMATOCRIT 32.3 % (37.0-47.0); HEMOGLOBIN 9.7 g/dl (12.0-16.0); RED BLOOD COUNT 3.34 mill/uL (4.20-5.60); RED CELL DISTRI WIDTH 15.6 % (11.5-15.5); TOTAL PROTEIN 6.2 g/dL (6.3-8.2)
[2021-07-16 06:01] LABS: MEAN CELL VOLUME 96.7 fL CALC (80.0-100.0)
[2021-07-16 06:02] LABS: POTASSIUM 5.4 mmol/l (3.5-5.1)
[2021-07-16 08:52] VITALS: BP 126/67
[2021-07-16 11:01] VITALS: BP 129/68
[2021-07-16 16:04] VITALS: BP 155/75
[2021-07-16 19:31] VITALS: BP 135/65
[2021-07-17] VITALS: BP 129/55
[2021-07-17 04:00] VITALS: BP 146/67
[2021-07-17 06:26] LABS: HEMATOCRIT 28.7 % (37.0-47.0); MEAN CORPUSCULAR HGB 28.4 pG CALC (26.0-32.0); MEAN CORPUSCULAR HGB CONC 31.4 g/dL CAL (32.0-36.0); RED BLOOD COUNT 3.17 mill/uL (4.20-5.60); RED CELL DISTRI WIDTH 15.6 % (11.5-15.5)
[2021-07-17 06:31] LABS: MEAN CELL VOLUME 90.5 fL CALC (80.0-100.0)
[2021-07-17 06:48] LABS: CREATININE 1.9 mg/dL (0.5-1.0); POTASSIUM 5.1 mmol/l (3.5-5.1)
[2021-07-17 06:49] LABS: MAGNESIUM 1.8 mg/dL (1.6-2.3)
[2021-07-17 07:47] VITALS: BP 165/76
[2021-07-17 10:00] VITALS: BP 142/62
[2021-07-17] MEDS ORDERED: NORVASC5 M1 PO (11:26)
[2021-07-17] MEDS ORDERED: SODIUM BICARBI650 MG PO (11:26)
[2021-07-17] MEDS ORDERED: HYDROCHLOROTH12.5 MG PO (11:26)
== END 2021-07-17 12:37 | disposition home or self-care (01) | DRG 683 ==
LOC: ED 17:37 → ED-I 20:00 → ED 20:17 → ED-I 20:18 → MS2 07-15 13:40
PROVIDERS: Family Medicine; Nurse Practitioner; ADMIT Internal Medicine; ATTEND Internal Medicine
PROC: 3E0234Z Introduction of Serum, Toxoid and Vaccine into Muscle, Percutaneous Approach (ICD-10-PCS; principal; 2021-07-16)
DX: N17.9 Acute kidney failure, unspecified (principal); N39.0 Urinary tract infection, site not specified; Z16.12 Extended spectrum beta lactamase (ESBL) resistance; T50.1X5A Adverse effect of loop [high-ceiling] diuretics, initial encounter; T46.4X5A Adverse effect of angiotensin-converting-enzyme inhibitors, initial encounter; E87.5 Hyperkalemia; E86.0 Dehydration; I12.9 Hypertensive chronic kidney disease with stage 1 through stage 4 chronic kidney disease, or unspecified chronic kidney disease; E11.22 Type 2 diabetes mellitus with diabetic chronic kidney disease; N18.9 Chronic kidney disease, unspecified; D64.9 Anemia, unspecified; K70.30 Alcoholic cirrhosis of liver without ascites; F10.10 Alcohol abuse, uncomplicated; E78.5 Hyperlipidemia, unspecified; B18.2 Chronic viral hepatitis C; D69.6 Thrombocytopenia, unspecified; D72.819 Decreased white blood cell count, unspecified; E66.9 Obesity, unspecified; B96.1 Klebsiella pneumoniae [K. pneumoniae] as the cause of diseases classified elsewhere; Z68.28 Body mass index [BMI] 28.0-28.9, adult; Z23 Encounter for immunization; Z20.822 Contact with and (suspected) exposure to COVID-19; R10.9 Unspecified abdominal pain
CPT/HCPCS: Q3014

== ENCOUNTER 2021-07-25 17:00 | Emergency (ER) | payer MEDICARE, MEDICAID ==
[~2021-07-25] VITALS: Ht 165.1 cm; Wt 70.0 kg
[~2021-07-25 17:00] MED LIST changes: +ALDACTONE50 MG PO; +SODIUM BICARBI650 MG PO
[2021-07-25] MEDS ORDERED: CORTISPORIN OTI10 M2 AD (19:40)
[2021-07-25 20:15] VITALS: BP 158/74
== END 2021-07-25 20:15 | disposition home or self-care (01) ==
LOC: ED 17:00
DX: H60.92 Unspecified otitis externa, left ear (principal); E11.9 Type 2 diabetes mellitus without complications; I10 Essential (primary) hypertension; B19.20 Unspecified viral hepatitis C without hepatic coma; K74.60 Unspecified cirrhosis of liver

== ENCOUNTER 2021-08-08 18:27 | Emergency (ER) | payer MEDICARE, MEDICAID ==
[~2021-08-08] VITALS: Ht 165.1 cm; Wt 81.8 kg
[~2021-08-08 18:27] MED LIST changes: +CORTISPORIN OTI10 M2 AD
[2021-08-08 20:12] LABS: HEMATOCRIT 28.2 % (37.0-47.0); HEMOGLOBIN 8.8 g/dl (12.0-16.0); IMMATURE GRANULOCYTES 0.4 % (0.0-5.0); MEAN CELL VOLUME 92.8 fL CALC (80.0-100.0); MEAN CORPUSCULAR HGB 28.9 pG CALC (26.0-32.0); MEAN CORPUSCULAR HGB CONC 31.2 g/dL CAL (32.0-36.0); NEUT# 3.53 thou/uL (2.00-7.15); RED BLOOD COUNT 3.04 mill/uL (4.20-5.60); RED CELL DISTRI WIDTH 15.2 % (11.5-15.5)
[2021-08-08 20:29] LABS: ALBUMIN 3.3 g/dL (3.2-5.0); BILIRUBIN, TOTAL 0.4 mg/dL (0.0-1.4); CARBON DIOXIDE 20 mmol/l (22-30); CHLORIDE 112 mmol/l (95-108); CREATININE 1.6 mg/dL (0.5-1.0); ETHYL ALCOHOL 0 mg/dl (0-30); GFR 33 ML/MIN (>=60 (CALC)); GFR FOR AFR.AMER. 40 ML/MIN (>=60 (CALC)); LIPASE 160 u/l (23-300); SGOT/AST 42 u/l (9-36); SODIUM 139 mmol/l (137-146)
[2021-08-08 20:34] LABS: ACT PARTIAL THROMBO TIME 24.5 SECONDS (20.0-32.5); INTERNATIONAL NORMALIZED RATIO 0.9 RATIO (0.7-1.3); PROTHROMBIN TIME 9.8 SECONDS (9.0-12.5)
[2021-08-08 20:41] LABS: ALKALINE PHOSPHATASE 211 u/l (38-126); ANION GAP 11 (6-22 (CALC)); BUN 29 mg/dL (8-23); BUN/CREATININE RATIO 18 (12-20 (CALC))
[2021-08-08 22:24] VITALS: BP 188/92
== END 2021-08-08 23:45 | disposition home or self-care (01) ==
LOC: ED 18:27
DX: R18.8 Other ascites (principal); K74.60 Unspecified cirrhosis of liver; J90 Pleural effusion, not elsewhere classified; B19.20 Unspecified viral hepatitis C without hepatic coma; I12.9 Hypertensive chronic kidney disease with stage 1 through stage 4 chronic kidney disease, or unspecified chronic kidney disease; E11.22 Type 2 diabetes mellitus with diabetic chronic kidney disease; N18.30 Chronic kidney disease, stage 3 unspecified; Z20.822 Contact with and (suspected) exposure to COVID-19
CPT/HCPCS: Q9967

== ENCOUNTER 2021-08-10 10:35 | Emergency (ER) | payer MEDICARE, MEDICAID ==
[~2021-08-10] VITALS: Ht 165.1 cm; Wt 78.0 kg
[2021-08-10 11:05] LABS: HEMOGLOBIN 8.7 g/dl (12.0-16.0); IMMATURE GRANULOCYTES 0.7 % (0.0-5.0); MEAN CELL VOLUME 92.4 fL CALC (80.0-100.0); MEAN CORPUSCULAR HGB 28.7 pG CALC (26.0-32.0); MEAN CORPUSCULAR HGB CONC 31.1 g/dL CAL (32.0-36.0); NEUT# 3.02 thou/uL (2.00-7.15); RED BLOOD COUNT 3.03 mill/uL (4.20-5.60); RED CELL DISTRI WIDTH 15.2 % (11.5-15.5)
[2021-08-10 11:38] LABS: ALBUMIN 2.9 g/dL (3.2-5.0); ALKALINE PHOSPHATASE 182 u/l (38-126); ANION GAP 10 (6-22 (CALC)); BILIRUBIN, TOTAL 0.5 mg/dL (0.0-1.4); BUN 28 mg/dL (8-23); BUN/CREATININE RATIO 19 (12-20 (CALC)); CARBON DIOXIDE 20 mmol/l (22-30); CHLORIDE 112 mmol/l (95-108); CREATININE 1.5 mg/dL (0.5-1.0); GFR 35 ML/MIN (>=60 (CALC)); GFR FOR AFR.AMER. 43 ML/MIN (>=60 (CALC)); POTASSIUM 4.4 mmol/l (3.5-5.1); SGOT/AST 44 u/l (9-36); SODIUM 138 mmol/l (137-146); TOTAL PROTEIN 6.2 g/dL (6.3-8.2)
[2021-08-10 12:02] LABS: URINE BILIRUBIN - DIPSTICK NEGATIVE (NEGATIVE); URINE BLOOD DIPSTICK MODERATE (NEGATIVE); URINE COLOR YELLOW; URINE GLUCOSE - DIPSTICK 100 mg/dL (NEGATIVE); URINE KETONE NEGATIVE (NEGATIVE); URINE LEUK ESTERASE NEGATIVE (NEGATIVE); URINE PH 6.5 (4.5-8.0); URINE PROTEIN - DIPSTICK >=300 mg/dL (NEG-TRACE); URINE SPECIFIC GRAVITY >=1.030; URINE UROBILINOGEN - DIPSTICK 0.2 E.U./dL (0.2)
[2021-08-10 12:07] LABS: URINE NITRITE - DIPSTICK NEGATIVE (Negative)
[2021-08-10 12:11] LABS: URINE SQUAMOUS EPITHELIAL CELL FEW EPI/hpf (0-FEW)
[2021-08-10 18:10] VITALS: BP 150/66
== END 2021-08-10 18:11 | disposition short-term general hospital (02) ==
LOC: ED 10:35
PROVIDERS: Emergency Medicine
PROC: 0W993ZZ Drainage of Right Pleural Cavity, Percutaneous Approach (ICD-10-PCS; principal; 2021-08-10)
PROC: BB4BZZZ Ultrasonography of Pleura (ICD-10-PCS; 2021-08-10)
DX: J90 Pleural effusion, not elsewhere classified (principal); D61.818 Other pancytopenia; R16.2 Hepatomegaly with splenomegaly, not elsewhere classified; E11.9 Type 2 diabetes mellitus without complications; I10 Essential (primary) hypertension; N28.9 Disorder of kidney and ureter, unspecified; B19.20 Unspecified viral hepatitis C without hepatic coma; K74.60 Unspecified cirrhosis of liver; F17.200 Nicotine dependence, unspecified, uncomplicated; Z20.822 Contact with and (suspected) exposure to COVID-19

== ENCOUNTER 2021-09-24 12:17 | Observation (INO) | payer MEDICARE, MEDICAID ==
[~2021-09-24] VITALS: Ht 165.1 cm; Wt 81.8 kg
--- NOTE | 2021-09-24 12:17 | NUR ---
PT TO ROOM VIA EMS
[2021-09-24] MEDS ORDERED: GABAPENTIN300 M2 PO (12:29)
[2021-09-24] MEDS ORDERED: COZAAR25 MG PO (12:30)
[2021-09-24 12:41] LABS: HEMATOCRIT 28.8 % (37.0-47.0); HEMOGLOBIN 9.1 g/dl (12.0-16.0); MEAN CELL VOLUME 89.7 fL CALC (80.0-100.0); MEAN CORPUSCULAR HGB 28.3 pG CALC (26.0-32.0); MEAN CORPUSCULAR HGB CONC 31.6 g/dL CAL (32.0-36.0); NEUT# 3.8 thou/uL (2.00-7.15); RED BLOOD COUNT 3.21 mill/uL (4.20-5.60); RED CELL DISTRI WIDTH 14.3 % (11.5-15.5)
[2021-09-24 13:00] LABS: ALBUMIN 2.8 g/dL (3.2-5.0); BILIRUBIN, TOTAL 0.5 mg/dL (0.0-1.4); CREATININE 1.7 mg/dL (0.5-1.0); TOTAL PROTEIN 6.3 g/dL (6.3-8.2)
[2021-09-24 13:14] LABS: POTASSIUM 3.5 mmol/l (3.5-5.1)
--- NOTE | 2021-09-24 13:30 | NUR ---
PATIENT RETURNED FROM RADIOLOGY. GIVEN LABETALOL PER ORDER. PATIENT REMAINS ON CARDIAC MONITORING. STATES SHE IS FEELING BETTER THAN WHEN SHE ARRIVED. DENIES ANY FURTHER NEEDS AT THIS TIME. WILL MONITOR
--- NOTE | 2021-09-24 14:01 | NUR ---
PATIENT MEDICATED WITH LASIX PER ORDER. ADMITTING PHYSICIAN AT BEDSIDE DISCUSSING ADMISSION VS DISCHARGE WITH PATIENT. PATIENT AGREEABLE TO BEING DISCHARGED AND FOLLOWING UP WITH PCP.
[2021-09-24 14:35] VITALS: BP 189/83
--- NOTE | 2021-09-24 15:00 | NUR ---
PATIENT RESTING QUIETLY ON STRETCHER. NO DISTRESS NOTED. DENIES ANY NEEDS AT THIS TIME.
--- NOTE | 2021-09-24 16:51 | NUR ---
IV site discontinued, cath intact. No edema , no redness, voices no discomfort.
--- NOTE | 2021-09-24 16:56 | NUR ---
Discharge instructions given. Patient verbalizes understanding of same. Discharged in stable condition via Ambulatory to Home with friend. All belongings sent with pt.
== END 2021-09-24 16:56 | disposition home or self-care (01) ==
LOC: ED 12:17 → ED-I 13:45 → ED 13:49 → ED-I 13:49 → ED 13:50 → ED-I 16:56
PROVIDERS: Family Medicine; ADMIT Hospitalist; ATTEND Hospitalist
PROC: 0W993ZZ Drainage of Right Pleural Cavity, Percutaneous Approach (ICD-10-PCS; principal; 2021-09-24)
PROC: BB4BZZZ Ultrasonography of Pleura (ICD-10-PCS; 2021-09-24)
DX: K74.60 Unspecified cirrhosis of liver (principal); J91.8 Pleural effusion in other conditions classified elsewhere; I10 Essential (primary) hypertension; B19.20 Unspecified viral hepatitis C without hepatic coma; E11.9 Type 2 diabetes mellitus without complications; E78.5 Hyperlipidemia, unspecified; E66.9 Obesity, unspecified; F17.210 Nicotine dependence, cigarettes, uncomplicated; Z20.822 Contact with and (suspected) exposure to COVID-19

== ENCOUNTER 2021-10-17 09:26 | Emergency (ER) | payer MEDICARE, MEDICAID ==
[~2021-10-17] VITALS: Ht 165.1 cm; Wt 81.8 kg
[~2021-10-17 09:26] MED LIST changes: +COZAAR25 MG PO; +GABAPENTIN300 M2 PO
[2021-10-17 10:19] LABS: HEMATOCRIT 29.1 % (37.0-47.0); IMMATURE GRANULOCYTES 0.2 % (0.0-5.0); MEAN CELL VOLUME 90.9 fL CALC (80.0-100.0); MEAN CORPUSCULAR HGB 28.1 pG CALC (26.0-32.0); MEAN CORPUSCULAR HGB CONC 30.9 g/dL CAL (32.0-36.0); NEUT# 3.4 thou/uL (2.00-7.15); RED BLOOD COUNT 3.2 mill/uL (4.20-5.60); RED CELL DISTRI WIDTH 14.2 % (11.5-15.5)
[2021-10-17 10:32] LABS: URINE BILIRUBIN - DIPSTICK NEGATIVE (NEGATIVE); URINE BLOOD DIPSTICK MODERATE (NEGATIVE); URINE COLOR YELLOW; URINE GLUCOSE - DIPSTICK 100 mg/dL (NEGATIVE); URINE KETONE NEGATIVE (NEGATIVE); URINE LEUK ESTERASE NEGATIVE (NEGATIVE); URINE PROTEIN - DIPSTICK >=300 mg/dL (NEG-TRACE); URINE UROBILINOGEN - DIPSTICK 0.2 E.U./dL (0.2)
[2021-10-17 10:33] LABS: URINE NITRITE - DIPSTICK NEGATIVE (Negative)
[2021-10-17 10:33] LABS: ALBUMIN 2.9 g/dL (3.2-5.0); ALKALINE PHOSPHATASE 253 u/l (38-126); ANION GAP 8 (6-22 (CALC)); BILIRUBIN, TOTAL 0.5 mg/dL (0.0-1.4); BUN 33 mg/dL (8-23); BUN/CREATININE RATIO 21 (12-20 (CALC)); CARBON DIOXIDE 20 mmol/l (22-30); CHLORIDE 110 mmol/l (95-108); CREATININE 1.5 mg/dL (0.5-1.0); ETHYL ALCOHOL 0 mg/dl (0-30); GFR 35 ML/MIN (>=60 (CALC)); GFR FOR AFR.AMER. 43 ML/MIN (>=60 (CALC)); LIPASE 197 u/l (23-300); POTASSIUM 4.2 mmol/l (3.5-5.1); SGOT/AST 49 u/l (9-36); SODIUM 135 mmol/l (137-146); TOTAL PROTEIN 6.4 g/dL (6.3-8.2)
[2021-10-17 10:40] LABS: URINE BACTERIA FEW hpf; URINE SQUAMOUS EPITHELIAL CELL FEW EPI/hpf (0-FEW)
[2021-10-17 10:41] LABS: URINE HYALINE CAST FEW lpf (NONE-RARE)
[2021-10-17 10:42] LABS: ACT PARTIAL THROMBO TIME 26.1 SECONDS (20.0-32.5)
[2021-10-17 12:25] VITALS: BP 187/78
== END 2021-10-17 12:32 | disposition short-term general hospital (02) ==
LOC: ED 09:26
DX: J90 Pleural effusion, not elsewhere classified (principal); R18.8 Other ascites; E11.9 Type 2 diabetes mellitus without complications; I10 Essential (primary) hypertension; B19.20 Unspecified viral hepatitis C without hepatic coma; K74.60 Unspecified cirrhosis of liver; F17.200 Nicotine dependence, unspecified, uncomplicated; Z20.822 Contact with and (suspected) exposure to COVID-19

== ENCOUNTER 2021-11-01 10:18 | Emergency (ER) | payer MEDICARE, MEDICAID ==
[~2021-11-01] VITALS: Ht 165.1 cm; Wt 80.0 kg
[2021-11-01 11:57] LABS: HEMATOCRIT 33.7 % (37.0-47.0); HEMOGLOBIN 10.2 g/dl (12.0-16.0); MEAN CELL VOLUME 91.1 fL CALC (80.0-100.0); MEAN CORPUSCULAR HGB 27.6 pG CALC (26.0-32.0); MEAN CORPUSCULAR HGB CONC 30.3 g/dL CAL (32.0-36.0); NEUT# 3.71 thou/uL (2.00-7.15); RED BLOOD COUNT 3.7 mill/uL (4.20-5.60); RED CELL DISTRI WIDTH 14.5 % (11.5-15.5)
[2021-11-01 11:58] LABS: ALBUMIN 2.9 g/dL (3.2-5.0); ALKALINE PHOSPHATASE 188 u/l (38-126); ANION GAP 11 (6-22 (CALC)); BILIRUBIN, TOTAL 0.5 mg/dL (0.0-1.4); BUN 39 mg/dL (8-23); BUN/CREATININE RATIO 23 (12-20 (CALC)); CARBON DIOXIDE 18 mmol/l (22-30); CHLORIDE 114 mmol/l (95-108); CREATININE 1.7 mg/dL (0.5-1.0); GFR 30 ML/MIN (>=60 (CALC)); GFR FOR AFR.AMER. 37 ML/MIN (>=60 (CALC)); POTASSIUM 4.8 mmol/l (3.5-5.1); SGOT/AST 50 u/l (9-36); SODIUM 138 mmol/l (137-146); TOTAL PROTEIN 6.6 g/dL (6.3-8.2)
[2021-11-01 16:10] VITALS: BP 191/81
== END 2021-11-01 16:10 | disposition short-term general hospital (02) ==
LOC: ED 10:18
PROVIDERS: Emergency Medicine
DX: K74.60 Unspecified cirrhosis of liver (principal); J91.8 Pleural effusion in other conditions classified elsewhere; I10 Essential (primary) hypertension; E11.9 Type 2 diabetes mellitus without complications; B19.20 Unspecified viral hepatitis C without hepatic coma; R06.02 Shortness of breath

== ENCOUNTER 2021-11-10 15:45 | Emergency (ER) | payer MEDICARE, MEDICAID ==
[~2021-11-10] VITALS: Ht 165.1 cm; Wt 82.0 kg
[2021-11-10] MEDS ORDERED: GENERLAC10 GM/15 M PO (16:21)
[2021-11-10] MEDS ORDERED: SPIRONOLACTONE25 MG PO (16:23)
[2021-11-10 16:54] LABS: HEMATOCRIT 30.8 % (37.0-47.0); HEMOGLOBIN 9.5 g/dl (12.0-16.0); MEAN CELL VOLUME 89.3 fL CALC (80.0-100.0); MEAN CORPUSCULAR HGB 27.5 pG CALC (26.0-32.0); MEAN CORPUSCULAR HGB CONC 30.8 g/dL CAL (32.0-36.0); NEUT# 3.05 thou/uL (2.00-7.15); RED BLOOD COUNT 3.45 mill/uL (4.20-5.60); RED CELL DISTRI WIDTH 14.5 % (11.5-15.5)
[2021-11-10 16:58] LABS: ALBUMIN 2.8 g/dL (3.2-5.0); ALKALINE PHOSPHATASE 195 u/l (38-126); ANION GAP 9 (6-22 (CALC)); BILIRUBIN, TOTAL 0.3 mg/dL (0.0-1.4); BUN 44 mg/dL (8-23); BUN/CREATININE RATIO 27 (12-20 (CALC)); CARBON DIOXIDE 18 mmol/l (22-30); CHLORIDE 113 mmol/l (95-108); CREATININE 1.6 mg/dL (0.5-1.0); GFR 33 ML/MIN (>=60 (CALC)); GFR FOR AFR.AMER. 40 ML/MIN (>=60 (CALC)); LIPASE 120 u/l (23-300); POTASSIUM 4.8 mmol/l (3.5-5.1); SGOT/AST 39 u/l (9-36); SODIUM 135 mmol/l (137-146); TOTAL PROTEIN 6.4 g/dL (6.3-8.2)
[2021-11-10 17:06] LABS: ACT PARTIAL THROMBO TIME 28.4 SECONDS (20.0-32.5); INTERNATIONAL NORMALIZED RATIO 0.9 RATIO (0.7-1.3); PROTHROMBIN TIME 9.8 SECONDS (9.0-12.5)
[2021-11-10 18:26] VITALS: BP 173/74
== END 2021-11-10 18:42 | disposition home or self-care (01) ==
LOC: ED 15:45
DX: K74.60 Unspecified cirrhosis of liver (principal); J91.8 Pleural effusion in other conditions classified elsewhere; I10 Essential (primary) hypertension; E11.9 Type 2 diabetes mellitus without complications; B19.20 Unspecified viral hepatitis C without hepatic coma; Z20.822 Contact with and (suspected) exposure to COVID-19

== ENCOUNTER 2021-11-12 08:04 | Observation (INO) | payer MEDICARE, MEDICAID ==
[~2021-11-12] VITALS: Ht 165.1 cm; Wt 90.5 kg
[~2021-11-12 08:04] MED LIST changes: +GENERLAC10 GM/15 M PO; +SPIRONOLACTONE25 MG PO
--- NOTE | 2021-11-12 08:30 | NUR ---
PATIENT TO ROOM VIA WHEELCHAIR. BEDSIDE TRIAGE COMPLETED
[2021-11-12 09:31] LABS: HEMATOCRIT 30.8 % (37.0-47.0); HEMOGLOBIN 9.4 g/dl (12.0-16.0); MEAN CELL VOLUME 88.3 fL CALC (80.0-100.0); MEAN CORPUSCULAR HGB 26.9 pG CALC (26.0-32.0); MEAN CORPUSCULAR HGB CONC 30.5 g/dL CAL (32.0-36.0); NEUT# 3.85 thou/uL (2.00-7.15); RED BLOOD COUNT 3.49 mill/uL (4.20-5.60); RED CELL DISTRI WIDTH 14.5 % (11.5-15.5)
[2021-11-12] MEDS ORDERED: COZAAR25 MG PO (09:36)
[2021-11-12 09:37] LABS: ALBUMIN 2.6 g/dL (3.2-5.0); BILIRUBIN, TOTAL 0.4 mg/dL (0.0-1.4); CREATININE 1.7 mg/dL (0.5-1.0); POTASSIUM 4.6 mmol/l (3.5-5.1); TOTAL PROTEIN 5.8 g/dL (6.3-8.2)
[2021-11-12] MEDS ORDERED: MOTRIN800 MG PO (09:37)
[2021-11-12] MEDS ORDERED: AMLODIPINE BESY10 MG PO (09:38)
--- NOTE | 2021-11-12 09:56 | NUR ---
REPORT RCVD FROM [facility]
--- NOTE | 2021-11-12 10:02 | NUR ---
PT RESTING ON ED BED, LYING ON RIGHT SIDE, IN NO DISTRESS. PT DENIES ANY NEEDS. PT STABLE.
--- NOTE | 2021-11-12 10:57 | NUR ---
DR SNOWDEN IN TO DISCUSS POC.
--- NOTE | 2021-11-12 11:02 | NUR ---
PT PLACED ON OXYGEN VIA NC AT 2L/MIN, PT STABLE.
--- NOTE | 2021-11-12 12:10 | NUR ---
DR SNOWDEN NOTIFIED THAT PT'S BP ELEVATED AND PT HAS NOT TAKEN HOME BP MEDS. AWAITING ORDERS.
--- NOTE | 2021-11-12 12:45 | NUR ---
CALL PLACED TO MED/SURG TO GIVE REPORT-RN UNABLE TO TAKE AT THIS TIME.
--- NOTE | 2021-11-12 13:05 | NUR ---
REPORT CALLED TO HERMILA MADISON
--- NOTE | 2021-11-12 13:17 | NUR ---
PT TO MED/SURG VIA WHEELCHAIR, TELE IN PLACE. PT STABLE AT THIS TIME.
[2021-11-12 13:25] VITALS: BP 197/78
--- NOTE | 2021-11-12 13:25 | NUR ---
REPORT RECEIVED FROM [facility]. PATIENT CAME FROM ER VIA WHEELCHAIR. VS OBTAIN. CALL LIGHT IN REACH.
--- NOTE | 2021-11-12 14:24 | NUR ---
PATIENT IS SITTING IN THE SIDE OF THE BED. ASSESSMENT DONE. PATIENT IS ALERT AND ORIENT X3. PATIENT DENIES PAIN. TELE IN PLACE #[id number]. PATIENT DENIES SOB. O2 AT 2L VIA NC. PO FLUIDS PROVDED. PATIENT DENIES ANY OTHER NEEDS AT THIS TIME. CALL LIGHT IN REACH.
[2021-11-12 15:17] VITALS: BP 149/75
--- NOTE | 2021-11-12 15:35 | NUR ---
SETUP PATIENT FOR A SHOWER. PATIENT DENIES ANY OTHER NEEDS. CALL LIGHT IN REACH.
[2021-11-12 19:00] VITALS: BP 138/65
--- NOTE | 2021-11-12 20:00 | NUR ---
PHYSICAL ASSESMENT COMPLETE. PT IS CURRENTLY IN PAIN AND DISCOMFORT. SCHEDULED MEDICATIONS AND PRN MEDICATION ADMINISTERED, SEE E-MAR. PT DENIES ANY NEEDS AT THIS TIME. PLAN OF CARE REVIEWED, PT DENIES QUESTIONS, VERBALIZES UNDERSTANDING. ITEMS WITHIN REACH, BED LOCKED IN LOW POSITION W/ BEDRAILS UP X2. CALL CHAPA WITHIN REACH, AGREES TO CALL PRN.
[2021-11-12 20:04] LABS: PROTHROMBIN TIME 10.2 SECONDS (9.0-12.5)
[2021-11-13 00:18] VITALS: BP 152/76
--- NOTE | 2021-11-13 02:35 | NUR ---
PT LAYING IN BED WITH EYES CLOSED, APPEARS TO BE SLEEPING, APPEARS COMFORTABLE AND IN NO DISTRESS. RESPIRATIONS REGULAR AND UNLABORED. ITEMS REMAIN WITHIN REACH, CALL CHAPA REMAINS WITHIN REACH. BED REMAINS LOCKED AND IN LOW POSITION WITH BEDRAILS UP X2. WILL CONTINUE TO MONITOR.
[2021-11-13 04:00] VITALS: BP 153/65
[2021-11-13 06:22] LABS: MEAN CELL VOLUME 90.3 fL CALC (80.0-100.0); RED BLOOD COUNT 3.21 mill/uL (4.20-5.60); RED CELL DISTRI WIDTH 14.5 % (11.5-15.5)
[2021-11-13 06:29] LABS: CREATININE 1.8 mg/dL (0.5-1.0); MAGNESIUM 2.1 mg/dL (1.6-2.3); POTASSIUM 4.7 mmol/l (3.5-5.1)
[2021-11-13 07:27] VITALS: BP 133/73
--- NOTE | 2021-11-13 07:27 | NUR ---
PT NOTED RESTING IN BED. WAKES EASILY. A&O X3. NO APPARENT DISTRESS NOTED. RESPIRATIONS EVEN AND UNLABORED. NC PLACED ON FOREHEAD, CURRENT SAT 97% ON RA. PT DENIES ANY PAIN OR SOB AT THIS TIME. IV SITE APPEARS HEALTHY, FLUSHED WELL. AERIAL HURRICANE HUNTER IN PLACE. DISCUSSED POC AND SAFETY. PT VERBALIZED UNDERSTANDING. CALL LIGHT WITHIN REACH. WILL CONTINUE TO MONITOR.
--- NOTE | 2021-11-13 09:48 | NUR ---
PHYSICIAN AT BEDSIDE.
--- NOTE | 2021-11-13 10:05 | NUR ---
PT LEFT FLOOR VIA WHEELCHAIR ACCOMPAINED BY VOLUNTEER IN STABLE CONDITION TO RADIOLOGY.
--- NOTE | 2021-11-13 10:30 | NUR ---
PT ARRIVED BACK TO FLOOR IN STABLE CONDITION.
--- NOTE | 2021-11-13 10:35 | NUR ---
5 MIN WALK TEST PERFORMED AT THIS TIME. PT SAT MAINTAINTED 93-95% ON RA.
[2021-11-13 11:01] VITALS: BP 140/70
--- NOTE | 2021-11-13 12:09 | NUR ---
PT RESTING IN BED. NO APPARENT DISTRESS NOTED. RESPIRATIONS EVEN AND UNLABORED. ON RA 96%. PT DENIES ANY PAIN OR DISCOMFORT. CALL LIGHT WITHIN REACH. WILL CONTINUE TO MONITOR.
[2021-11-13 15:02] VITALS: BP 137/66
--- NOTE | 2021-11-13 15:10 | NUR ---
IV site discontinued, cath intact. No edema , no redness, voices no discomfort.
--- NOTE | 2021-11-13 15:24 | NUR ---
Discharge instructions given. Patient verbalizes understanding of same. Discharged in stable condition via Wheelchair to Home with family. All belongings sent with pt.
== END 2021-11-13 15:24 | disposition home or self-care (01) ==
LOC: ED 08:04 → ED-I 10:30 → ED 10:30 → ED-I 10:54 → ED 11:04 → MS2 11:05 → ED 11:06 → MS2 11-13 15:24
PROVIDERS: Emergency Medicine; Nurse Practitioner; ADMIT Hospitalist; ATTEND Hospitalist
DX: K74.60 Unspecified cirrhosis of liver (principal); J91.8 Pleural effusion in other conditions classified elsewhere; R18.8 Other ascites; B19.20 Unspecified viral hepatitis C without hepatic coma; R16.2 Hepatomegaly with splenomegaly, not elsewhere classified; I12.9 Hypertensive chronic kidney disease with stage 1 through stage 4 chronic kidney disease, or unspecified chronic kidney disease; E11.22 Type 2 diabetes mellitus with diabetic chronic kidney disease; N18.30 Chronic kidney disease, stage 3 unspecified; D64.9 Anemia, unspecified; E78.5 Hyperlipidemia, unspecified; E66.9 Obesity, unspecified; F17.200 Nicotine dependence, unspecified, uncomplicated; Z68.33 Body mass index [BMI] 33.0-33.9, adult; Z23 Encounter for immunization; Z20.822 Contact with and (suspected) exposure to COVID-19
CPT/HCPCS: G0378

== ENCOUNTER 2022-07-10 15:18 | Emergency (ER) | payer MEDICARE, MEDICAID ==
[~2022-07-10] VITALS: Ht 165.1 cm; Wt 78.6 kg
[~2022-07-10 15:18] MED LIST changes: +MOTRIN800 MG PO
[2022-07-10 15:46] LABS: HEMATOCRIT 24.4 % (37.0-47.0); HEMOGLOBIN 7.6 g/dl (12.0-16.0); MEAN CELL VOLUME 89.7 fL CALC (80.0-100.0); MEAN CORPUSCULAR HGB 27.9 pG CALC (26.0-32.0); MEAN CORPUSCULAR HGB CONC 31.1 g/dL CAL (32.0-36.0); NEUT# 4.36 thou/uL (2.00-7.15); RED BLOOD COUNT 2.72 mill/uL (4.20-5.60); RED CELL DISTRI WIDTH 17.3 % (11.5-15.5)
[2022-07-10 15:57] LABS: INTERNATIONAL NORMALIZED RATIO 1.1 RATIO (0.7-1.3); PROTHROMBIN TIME 11.2 SECONDS (9.0-12.5)
[2022-07-10 16:00] LABS: ALBUMIN 2.3 g/dL (3.2-5.0); CREATININE 1.9 mg/dL (0.5-1.0); TOTAL PROTEIN 5.8 g/dL (6.3-8.2)
[2022-07-10 16:06] LABS: BILIRUBIN, TOTAL 0.5 mg/dL (0.0-1.4)
[2022-07-10 20:00] VITALS: BP 161/77
[2022-07-10 20:15] VITALS: BP 163/89
[2022-07-10 21:02] VITALS: BP 163/89
== END 2022-07-10 21:03 | disposition short-term general hospital (02) ==
LOC: ED 15:18
PROVIDERS: Nurse Practitioner
DX: R07.9 Chest pain, unspecified (principal); K92.2 Gastrointestinal hemorrhage, unspecified; D64.9 Anemia, unspecified; R16.2 Hepatomegaly with splenomegaly, not elsewhere classified; I13.0 Hypertensive heart and chronic kidney disease with heart failure and stage 1 through stage 4 chronic kidney disease, or unspecified chronic kidney disease; I50.9 Heart failure, unspecified; K72.10 Chronic hepatic failure without coma; K74.60 Unspecified cirrhosis of liver; B19.20 Unspecified viral hepatitis C without hepatic coma; E11.22 Type 2 diabetes mellitus with diabetic chronic kidney disease; N18.30 Chronic kidney disease, stage 3 unspecified; Z96.89 Presence of other specified functional implants
CPT/HCPCS: J2354; S0164

== ENCOUNTER 2022-07-23 13:45 | Emergency (ER) | payer MEDICARE, MEDICAID ==
[~2022-07-23] VITALS: Ht 165.1 cm; Wt 78.0 kg
[2022-07-23 14:09] LABS: HEMATOCRIT 28.5 % (37.0-47.0); HEMOGLOBIN 8.7 g/dl (12.0-16.0); IMMATURE GRANULOCYTES 0.2 % (0.0-5.0); MEAN CELL VOLUME 93.4 fL CALC (80.0-100.0); MEAN CORPUSCULAR HGB 28.5 pG CALC (26.0-32.0); MEAN CORPUSCULAR HGB CONC 30.5 g/dL CAL (32.0-36.0); NEUT# 4.21 thou/uL (2.00-7.15); RED BLOOD COUNT 3.05 mill/uL (4.20-5.60); RED CELL DISTRI WIDTH 18.1 % (11.5-15.5)
[2022-07-23 14:34] LABS: ALBUMIN 2.3 g/dL (3.2-5.0); BILIRUBIN, TOTAL 0.6 mg/dL (0.0-1.4); CREATININE 1.8 mg/dL (0.5-1.0); POTASSIUM 3.5 mmol/l (3.5-5.1); TOTAL PROTEIN 5.8 g/dL (6.3-8.2)
[2022-07-23] MEDS ORDERED: CIPROFLOXACN750 MG PO (15:56)
[2022-07-23] MEDS ORDERED: IMODIUM2 MG PO (15:56)
[2022-07-23] MEDS ORDERED: ZOFRAN4 MG/TAB PO (15:56)
[2022-07-23] MEDS ORDERED: FUROSEMIDE20 MG PO (17:20)
[2022-07-23] MEDS ORDERED: COZAAR25 MG PO (17:20)
[2022-07-23] MEDS ORDERED: GENERLAC10 GM/15 M PO (17:20)
[2022-07-23] MEDS ORDERED: MOTRIN800 MG PO (17:20)
[2022-07-23] MEDS ORDERED: AMLODIPINE BESY10 MG PO (17:20)
[2022-07-23] MEDS ORDERED: GABAPENTIN300 M2 PO (17:20)
[2022-07-23 17:49] VITALS: BP 165/81
== END 2022-07-23 17:51 | disposition home or self-care (01) ==
LOC: ED 13:45
PROVIDERS: Emergency Medicine
DX: R06.02 Shortness of breath (principal); R14.0 Abdominal distension (gaseous); K74.60 Unspecified cirrhosis of liver; I10 Essential (primary) hypertension; E11.9 Type 2 diabetes mellitus without complications; B19.20 Unspecified viral hepatitis C without hepatic coma; R60.0 Localized edema

== ENCOUNTER 2022-07-31 08:08 | Emergency (ER) | payer MEDICARE, MEDICAID ==
[2022-07-31] VITALS (16 sets, daily range): BP systolic 145–180; BP diastolic 72–96
[~2022-07-31] VITALS: Ht 165.1 cm; Wt 70.0 kg
[~2022-07-31 08:08] MED LIST changes: +CIPROFLOXACN750 MG PO; +IMODIUM2 MG PO
[2022-07-31 08:39] LABS: HEMATOCRIT 31.7 % (37.0-47.0); HEMOGLOBIN 9.8 g/dl (12.0-16.0); MEAN CELL VOLUME 91.9 fL CALC (80.0-100.0); MEAN CORPUSCULAR HGB 28.4 pG CALC (26.0-32.0); MEAN CORPUSCULAR HGB CONC 30.9 g/dL CAL (32.0-36.0); NEUT# 4.27 thou/uL (2.00-7.15); RED BLOOD COUNT 3.45 mill/uL (4.20-5.60); RED CELL DISTRI WIDTH 17.8 % (11.5-15.5)
[2022-07-31 08:50] LABS: ALBUMIN 2.2 g/dL (3.2-5.0); BILIRUBIN, TOTAL 0.8 mg/dL (0.0-1.4); CREATININE 1.5 mg/dL (0.5-1.0); MAGNESIUM 1.9 mg/dL (1.6-2.3); POTASSIUM 3.8 mmol/l (3.5-5.1); TOTAL PROTEIN 5.7 g/dL (6.3-8.2)
[2022-07-31 09:23] LABS: URINE BILIRUBIN - DIPSTICK NEGATIVE (NEGATIVE); URINE BLOOD DIPSTICK MODERATE (NEGATIVE); URINE COLOR YELLOW; URINE GLUCOSE - DIPSTICK 100 mg/dL (NEGATIVE); URINE KETONE NEGATIVE (NEGATIVE); URINE LEUK ESTERASE NEGATIVE (NEGATIVE); URINE PROTEIN - DIPSTICK >=300 mg/dL (NEG-TRACE); URINE SPECIFIC GRAVITY 1.025; URINE UROBILINOGEN - DIPSTICK 0.2 E.U./dL (0.2)
[2022-07-31 09:30] LABS: URINE NITRITE - DIPSTICK NEGATIVE (Negative)
[2022-07-31 09:38] LABS: URINE SQUAMOUS EPITHELIAL CELL FEW EPI/hpf (0-FEW); URINE WBC 0-2 WBC/hpf (0-5)
== END 2022-07-31 11:54 | disposition home or self-care (01) ==
LOC: ED 08:08
PROVIDERS: Emergency Medicine
DX: R42 Dizziness and giddiness (principal); E83.51 Hypocalcemia; I10 Essential (primary) hypertension; E11.9 Type 2 diabetes mellitus without complications; B19.20 Unspecified viral hepatitis C without hepatic coma; K74.60 Unspecified cirrhosis of liver